=== PATIENT | female | born 1960 | race Caucasian/White ===

== ENCOUNTER 2016-11-24 14:11 | Emergency (ER) | payer OTHER ==
[2016-11-24 14:26] VITALS: TEMP 98.2
--- NOTE | 2016-11-24 15:29 | EDPHY ---
H & P Stated Complaint: R leg swelling/pain knee to foot, back sgy 3/; hx superficial clot Time Seen by Provider: 11/24/16 15:25 HPI/ROS: HPI: 56-year-old female presents to emergency department with chief concern right lower extremity pain and swelling. She was sent to ED for evaluation for possible DVT by Dr. Drew who she was seeing this afternoon for a follow-up appointment for back surgery done 2 weeks ago. She reports right lower leg numbness and tingling since her surgery 2 weeks ago, but reports onset of pain and swelling over the past several days. Denies fever, chills, URI symptoms, shortness of breath, chest pain, nausea, vomiting, history of DVT, aggravating or alleviating factors. Reports a history of superficial thrombophlebitis in the right lower extremity in the past. No family history of coagulopathy. ROS:10 point review of systems is negative other than as stated in HPI Source: Patient Exam Limitations: No limitations - Personal History Current Tetanus/Diphtheria Vaccine: Yes Current Tetanus Diphtheria and Acellular Pertussis (TDAP): Yes - Medical/Surgical History Hx Asthma: No Hx Chronic Respiratory Disease: No Hx Diabetes: No Hx Cardiac Disease: No Hx Renal Disease: No Hx Cirrhosis: No Hx Alcoholism: No Hx HIV/AIDS: No Hx Splenectomy or Spleen Trauma: No Other PMH: discectomy L5-S1, hysterectomy, cholecystectomy - Family History Significant Family History: No pertinent family hx - Social History Smoking Status: Heavy smoker Alcohol Use: Rarely Drug Use: None Additional Social History: - Physical Exam Exam: Vital signs stable, reviewed by me General: Awake, alert, calm, cooperative. No acute distress. Head: Normalocephalic. Atraumatic. EENT: PERRLA. EOMI. No pallor or injection. Anicteric. No nystagmus. No injection. Neck: Supple, nontender. No lymphadenopathy. Full range of motion. No meningismus. Respiratory: Breathing unlabored. Breath sounds equal bilaterally and clear to auscultation. No adventitious sounds. CV: Chest nontender, atraumatic. Heart rate regular. No murmur, distal pulses 2+ bilaterally. Brisk cap refill all extremities. GI: Abdomen soft, nontender. Bowel sounds normoactive and positive x4 quadrants. Neuro: Alert. Oriented x 3. Speech clear. Nonfocal cranial nerves throughout. Sensation intact all extremities. Skin: Skin warm, dry, intact. No erythema. Skin turgor normal. Pustule located left lip. Extremities: Full range of motion in all 4 extremities. Strength 5+ all extremities. Positive calf tenderness right lower extremity, positive Homans. Constitutional: Initial Vital Signs Temperature (C) 36.8 C 11/24/16 14:21 Heart Rate 75 11/24/16 14:21 Respiratory Rate 16 11/24/16 14:21 Blood Pressure 147/79 H 11/24/16 14:21 O2 Sat (%) 96 11/24/16 14:21 O2 Delivery Mode Room Air Allergies/Adverse Reactions: Sulfa (Sulfonamide Antibiotics) Allergy (Verified 11/24/16 14:26) Home Medications: Medication Instructions Recorded AMITRIPTYLINE HCL 11/24/16 ASPIRIN 11/24/16 CALCIUM 11/24/16 Lexapro 11/24/16 Mupirocin 2% [Bactroban 2%] 15 gm TP BID #01 oint 11/24/16 Pantoprazole Sodium 11/24/16 Zetia 11/24/16 Medical Decision Making - Diagnostics Imaging: Right Lower Extremity Deep Venous Duplex Ultrasound Indication: Pain for 2 days. Technique: The lower extremity deep venous system and veins of the proximal calf were interrogated with grayscale, color, and spectral Doppler imaging. Comparison: None Findings: The common femoral, femoral, popliteal, greater saphenous and posterior tibial and peroneal veins of the calf normally compress on grayscale imaging. The deep venous system and superficial veins of the proximal calf have normal flow and expected variability. Impression: Negative. No deep venous thrombosis. Dictated By: Quentin Merino MD ED Course/Re-evaluation: 48-year-old female presents to emergency department for evaluation for possible DVT of the right lower extremity. Was sent by her neurosurgeon Dr. Drew for ultrasound of the right lower extremity to rule out DVT in the setting of right lower extremity pain, swelling, calf pain. History of superficial thrombophlebitis in the right lower extremity in the past. No personal or family history of DVT. Ultrasound ordered. Patient declines pain medication. 1520: Ultrasound negative for DVT. Patient will be discharged to follow up with primary care. I have prescribed Naprosyn for a pustule on her left lip. Differential Diagnosis: Differential diagnosis includes but is not limited to musculoskeletal strain, DVT, postsurgical changes Departure - Departure Disposition: Home, Routine, Self-Care Clinical Impression: Right leg pain Condition: Good Instructions: Leg Pain (ED) Additional Instructions: Plan: Please follow up with primary care in the next 1-2 days for recheck without fail --When you call to schedule appointment, please let the office know you are an "ER follow up" appointment" For lesion on the side of the lip, apply mupirocin-Bactroban, twice daily for the next week Follow up with Dr. Drew for ongoing lower leg discomfort, numbness or tingling Referrals: HUI MATTHEW [Other] - As per Instructions Prescriptions: Mupirocin 2% [Bactroban 2%] 15 gm TP BID #01 oint
[2016-11-24 17:03] VITALS: BP 152/75; PULSE 81; RESP 14; O2SAT 94
== END 2016-11-24 17:01 | disposition home or self-care (01) ==
DX: M79.661 Pain in right lower leg (principal); F17.200 Nicotine dependence, unspecified, uncomplicated; Z79.82 Long term (current) use of aspirin